=== PATIENT | female | born 1955 | race African-American/Black ===

== ENCOUNTER 2020-11-15 11:29 | Emergency (ER) | payer OTHER, SELFPAY ==
[2020-11-15] MEDS ORDERED: Ondansetron PF 4 MG/2 ML Vial ONE (12:23)
[2020-11-15] MEDS ORDERED: Pantoprazole 40 MG VIAL ONE (12:23)
[2020-11-15] MEDS ORDERED: Labetalol HCl 100 MG/20 ML VIAL ONE ×2 (12:23→12:25)
[2020-11-15] MEDS ORDERED: Metoprolol Tartrate 5 MG/5 ML VIAL ONE (12:26)
[2020-11-15 12:45] LABS: #Basophils 0.1 thou/uL (0.0-0.2); #Lymphocytes 1.7 thou/uL (1.20-3.40); #Monocytes 0.7 thou/uL (0.11-0.59); #Neutrophils 4.8 thou/uL (1.40-6.50); %Eosinophils 0.5 % (0.0-10.0); %Lymphocytes 22.7 % (21.0-51.0); %Monocytes 9.5 % (0.0-10.0); %Neutrophils 66.3 % (42.0-75.0); Hemoglobin 13.2 g/dL (12.0-16.0); Mean Corpuscular HGB CONC 32.7 g/dL (32.0-36.0); Mean Corpuscular Hemoglobin 29.8 pg (27.0-31.0); Mean Corpuscular Volume 91.3 fL (78.0-98.0); Mean Platelet Volume 7.2 fL (7.4-10.4); Platelet Count 340 thou/uL (130-400); RBC Distribution Width 11.3 % (11.5-14.5); Red Blood Cell (RBC) Count 4.43 mill/uL (4.20-5.40); White Blood Cell (WBC) Count 7.3 thou/uL (4.8-10.8)
[2020-11-15 13:07] LABS: ALT (SGPT) 17 U/L (8-55); AST (SGOT) 28 U/L (5-34); Albumin 3.7 g/dL (3.4-4.8); Alkaline Phosphatase 95 U/L (40-110); Anion Gap 13 mmol/L (10-20); BUN (Urea Nitrogen) 9 mg/dL (9.8-20.1); Bilirubin, Total 0.5 mg/dL (0.2-1.2); Calc. Creatinine Clearance 0 mL/min (70-130); Calcium 9.5 mg/dL (7.8-10.44); Carbon Dioxide 33 mmol/L (23-31); Chloride 99 mmol/L (98-107); Globulin 3.9 g/dL (2.4-3.5); Glucose 121 mg/dL (80-115); Lipase 221 U/L (8-78); Potassium 4.3 mmol/L (3.5-5.1); Protein, Total 7.6 g/dL (5.8-8.1); Sodium 141 mmol/L (136-145)
[2020-11-15 14:15] LABS: Bilirubin Negative (Negative); Blood, Urine Negative (Negative); Clarity Turbid (Clear); Glucose, Urine (Dipstick) Normal (Negative); Ketone, Urine Negative (Negative); Leukocyte 250 Leu/uL (Negative); Nitrite Negative (Negative); Protein, Urine (Dipstick) 20 mg/dL (Neg-Trace); RBC/HPF 0-3 HPF (0-3); Specific Gravity, Urine 1.015 (1.002-1.036); Urobilinogen Normal mg/dL (Less than 2); WBC/HPF 21-50 HPF (0-3)
[2020-11-15 14:17] LABS: Bacteria/HPF 1+ HPF (None Seen)
== END 2020-11-15 14:34 | disposition home or self-care (01) ==
LOC: ERS 11:29
DX: K85.90 Acute pancreatitis without necrosis or infection, unspecified (principal); R11.0 Nausea; I10 Essential (primary) hypertension; E78.00 Pure hypercholesterolemia, unspecified; Z79.899 Other long term (current) drug therapy
CPT/HCPCS: 80053; 81003; 81015; 83690; 84484; 85025; 93005; 96374; 96375; C9113; J2405

== ENCOUNTER 2020-11-17 06:16 | Emergency (ER) | payer SELFPAY ==
[2020-11-17] MEDS ORDERED: Pantoprazole 40 MG VIAL ONE (07:44)
[2020-11-17] MEDS ORDERED: Morphine 4 MG/ML VIAL ONE (07:44)
[2020-11-17] MEDS ORDERED: Ondansetron PF 4 MG/2 ML Vial ONE (07:44)
[2020-11-17 08:03] LABS: #Lymphocytes 1.7 thou/uL (1.20-3.40); #Monocytes 0.7 thou/uL (0.11-0.59); %Basophils 0.4 % (0.0-1.0); %Eosinophils 0.6 % (0.0-10.0); %Lymphocytes 26.6 % (21.0-51.0); %Monocytes 10.1 % (0.0-10.0); %Neutrophils 62.4 % (42.0-75.0); Hemoglobin 12.9 g/dL (12.0-16.0); Mean Corpuscular HGB CONC 33.4 g/dL (32.0-36.0); Mean Corpuscular Hemoglobin 30.8 pg (27.0-31.0); Mean Corpuscular Volume 92.2 fL (78.0-98.0); Mean Platelet Volume 7.2 fL (7.4-10.4); Platelet Count 331 thou/uL (130-400); RBC Distribution Width 11.3 % (11.5-14.5); Red Blood Cell (RBC) Count 4.17 mill/uL (4.20-5.40); White Blood Cell (WBC) Count 6.4 thou/uL (4.8-10.8)
[2020-11-17 08:29] LABS: ALT (SGPT) 19 U/L (8-55); AST (SGOT) 37 U/L (5-34); Albumin 3.7 g/dL (3.4-4.8); Alkaline Phosphatase 89 U/L (40-110); Anion Gap 13 mmol/L (10-20); BUN (Urea Nitrogen) 5 mg/dL (9.8-20.1); Bilirubin, Total 0.5 mg/dL (0.2-1.2); Calc. Creatinine Clearance 0 mL/min (70-130); Calcium 9.3 mg/dL (7.8-10.44); Carbon Dioxide 29 mmol/L (23-31); Chloride 101 mmol/L (98-107); Globulin 4.9 g/dL (2.4-3.5); Glucose 121 mg/dL (80-115); Lipase 148 U/L (8-78); Potassium 4.4 mmol/L (3.5-5.1); Protein, Total 8.6 g/dL (5.8-8.1); Sodium 139 mmol/L (136-145)
--- NOTE | 2020-11-17 08:33 | RAD ---
RADIOGRAPH CHEST 1 VIEW: DATE: 11/17/2020 TIME: 8:10 AM HISTORY: 65-year-old female with chest pain COMPARISON: 09/30/2012 FINDINGS: Again noted is the mildly elevated right hemidiaphragm. Again noted are scattered calcified granulomata in the bilateral mid and lower lung zones, especially on the right. Prominent interstitial markings at bilateral mid and lower lung zones appear slightly more prominent on the current study, especially on the right, compared to prior study. Cardiac size at upper limits of normal. No pneumothorax. No consolidation IMPRESSION: 1) nonspecific prominent interstitial markings, right greater than left. 2) chronically elevated right hemidiaphragm. 3) evidence for old, inactive pulmonary granulomatous disease. 4) no acute consolidation
[2020-11-17 09:28] LABS: Bacteria/HPF 3+ HPF (None Seen); Bilirubin Negative (Negative); Blood, Urine Negative (Negative); Clarity Turbid (Clear); Glucose, Urine (Dipstick) Normal (Negative); Ketone, Urine Negative (Negative); Leukocyte Negative Leu/uL (Negative); Nitrite 2+ (Negative); Protein, Urine (Dipstick) Negative (Neg-Trace); RBC/HPF None Seen HPF (0-3); Specific Gravity, Urine 1.006 (1.002-1.036); Urobilinogen Normal mg/dL (Less than 2); pH, Urine 7.5 (5.0-9.0)
[2020-11-17] MEDS ORDERED: Iopamidol-370 76% 500 ML 1 ML ONE (10:07)
--- NOTE | 2020-11-17 10:22 | CT ---
EXAM: Abdomen and pelvic CT scan with contrast: HISTORY: Abdominal pain and discomfort COMPARISON: None FINDINGS: Lungs:Moderate bilateral patchy interstitial and groundglass opacity changes in both visualized right and left lower lungs. This appearance could certainly be associated with Covid pneumonia. Correlate with laboratory findings. Old granulomatous disease. Liver: Unremarkable. Gallbladder:Unremarkable. Common bile duct:Normal Pancreas:Unremarkable Spleen:Unremarkable. Adrenal glands:Unremarkable. Kidneys:No renal calculus or acute obstruction. 6.6 cm diameter cyst anterior right mid kidney No evidence for bowel obstruction. Aorta:No evidence for aneurysm. Spine:Discogenic disease. No CT evidence for acute appendicitis. Borderline thick urinary bladder wall although it is not significantly distended. Reproductive system:Unremarkable as visualized. Hernias:Small hiatal hernia and small fat-containing umbilical hernia. Other findings as above. No abscess, adenopathy, or abnormal fluid collection within the abdomen or pelvis. IMPRESSION: Moderate bilateral patchy interstitial and groundglass opacity changes in both lower lungs, this appe arance could be consistent with Covid pneumonia. Correlate with laboratory findings. Borderline thick urinary bladder wall, nonspecific.
[2020-11-17] MEDS ORDERED: cefTRIAXone\\ROCEPHIN 1 GM VIAL ONE (10:42)
[2020-11-17] MEDS ORDERED: Labetalol HCl 100 MG/20 ML VIAL ONE (11:04)
== END 2020-11-17 13:47 | disposition home or self-care (01) ==
LOC: ERS 06:16
DX: N39.0 Urinary tract infection, site not specified (principal); I10 Essential (primary) hypertension; E78.00 Pure hypercholesterolemia, unspecified; Z79.899 Other long term (current) drug therapy
CPT/HCPCS: 71045; 74177; 80053; 81003; 81015; 83605; 83690; 85025; 93005; 96365; 96375; C9113; J0696; J2270; J2405; Q9967

== ENCOUNTER 2025-08-22 12:38 | Inpatient (IN) | payer MEDICARE ==
[2025-08-22 14:44] LABS: #Basophils 0.06 10x3/uL (0.0-0.2); #Eosinophils 0.11 10x3/uL (0.0-0.7); #Monocytes 0.88 10x3/uL (0.11-0.59); #Neutrophils 6.66 10x3/uL (1.40-6.50); %Basophils 0.6 % (0.0-1.0); %Eosinophils 1.1 % (0.0-10.0); %Lymphocytes 22.3 % (21.0-51.0); %Monocytes 8.8 % (0.0-10.0); %Neutrophils 66.8 % (42.0-75.0); Hematocrit 40.2 % (36.0-47.0); Hemoglobin 12.7 g/dL (12.0-16.0); Mean Corpuscular Hemoglobin 28.1 pg (27.0-31.0); Mean Corpuscular Volume 88.9 fL (78.0-98.0); Platelet Count 236 10x3/uL (130-400); Red Blood Cell (RBC) Count 4.52 mill/uL (4.20-5.40); White Blood Cell (WBC) Count 9.98 10x3/uL (4.8-10.8)
[2025-08-22 14:59] LABS: ALT (SGPT) 13 U/L (Less than 34); AST (SGOT) 31 U/L (11-34); Albumin 4.2 g/dL (3.1-4.5); Alkaline Phosphatase 160 U/L (40-110); Anion Gap 18 mmol/L (10-20); BUN (Urea Nitrogen) 20 mg/dL (9.8-20.1); Bilirubin, Total 0.3 mg/dL (0.3-1.2); Calc. Creatinine Clearance 0 mL/min (70-130); Calcium 10.5 mg/dL (7.8-10.44); Carbon Dioxide 27 mmol/L (23-31); Chloride 104 mmol/L (98-107); Globulin 4.5 g/dL (2.4-3.5); Glucose 106 mg/dL (80-115); Potassium 4.9 mmol/L (3.5-5.1); Sodium 144 mmol/L (136-145)
[2025-08-22] MEDS ORDERED: Nitroglycerin 2% Ointment 1 INCH/1 GM Packet ONE (15:41)
[2025-08-22] MEDS ORDERED: Aspirin Chewable 81 MG TAB ONE (15:42)
[2025-08-22] MEDS ORDERED: hydrALAZINE 20 MG/ML VIAL ONE (17:04)
[2025-08-22] MEDS ORDERED: Nitroglycerin 0.4 MG TAB (25 Tab Bottle) SL PRN (17:54)
[2025-08-22] MEDS ORDERED: Melatonin 3 MG TAB PO PRN (17:54)
[2025-08-22] MEDS ORDERED: Acetaminophen 325 MG TAB PO PRN (17:54)
[2025-08-22 19:56] VITALS: BMI 35.5
[2025-08-22] MEDS: Famotidine 20 MG TAB PO SCH (20:35)
[2025-08-22] MEDS: Ondansetron PF 4 MG/2 ML Vial IVP PRN (20:35)
[2025-08-22] MEDS: Phenytoin Extended Release 100 MG CAP PO SCH (20:35)
[2025-08-23 05:09] LABS: Anion Gap 15 mmol/L (10-20); BUN (Urea Nitrogen) 23 mg/dL (9.8-20.1); Calc. Creatinine Clearance 44 mL/min (70-130); Calcium 9.6 mg/dL (7.8-10.44); Carbon Dioxide 23 mmol/L (23-31); Cardiac Risk 2.9 (Less than 4.5); Chloride 106 mmol/L (98-107); Cholesterol 169 mg/dl (< 200 Desired); Glucose 102 mg/dL (80-115); HDL Cholesterol 59 mg/dL (>60 Neg Risk); LDL Cholesterol, Calculated 97 mg/dL; Potassium 3.9 mmol/L (3.5-5.1); Sodium 140 mmol/L (136-145); Triglycerides 63 mg/dL (Less than 150)
[2025-08-23] MEDS: Losartan 25 MG TAB PO SCH (08:27)
[2025-08-23] MEDS: Aspirin Chewable 81 MG TAB PO SCH (08:28)
[2025-08-23] MEDS: Enoxaparin 40 MG (0.4 mL) SYRINGE SC SCH (08:29)
[2025-08-23] MEDS: Carvedilol 25 MG TAB PO SCH (16:27)
[2025-08-24 04:59] LABS: Anion Gap 15 mmol/L (10-20); BUN (Urea Nitrogen) 28 mg/dL (9.8-20.1); Calc. Creatinine Clearance 45 mL/min (70-130); Calcium 9.2 mg/dL (7.8-10.44); Carbon Dioxide 23 mmol/L (23-31); Chloride 104 mmol/L (98-107); Glucose 98 mg/dL (80-115); Potassium 4.1 mmol/L (3.5-5.1); Sodium 138 mmol/L (136-145)
[2025-08-24] MEDS: Famotidine 20 MG TAB PO SCH (07:51)
[2025-08-25 05:03] LABS: Anion Gap 14 mmol/L (10-20); BUN (Urea Nitrogen) 21 mg/dL (9.8-20.1); Calc. Creatinine Clearance 59 mL/min (70-130); Calcium 9.6 mg/dL (7.8-10.44); Carbon Dioxide 26 mmol/L (23-31); Chloride 108 mmol/L (98-107); Glucose 104 mg/dL (80-115); Potassium 4.5 mmol/L (3.5-5.1); Sodium 143 mmol/L (136-145)
[2025-08-26 06:34] LABS: Anion Gap 12 mmol/L (10-20); BUN (Urea Nitrogen) 17 mg/dL (9.8-20.1); Calc. Creatinine Clearance 74 mL/min (70-130); Calcium 9.9 mg/dL (7.8-10.44); Carbon Dioxide 25 mmol/L (23-31); Chloride 106 mmol/L (98-107); Glucose 103 mg/dL (80-115); Potassium 3.8 mmol/L (3.5-5.1); Sodium 139 mmol/L (136-145)
[2025-08-26] MEDS: Losartan 25 MG TAB PO SCH (08:31)
[2025-08-27 08:52] VITALS: BP 125/60; TEMP 98.6
[2025-08-27] MEDS ORDERED: Losartan 25 MG TAB PO SCH (09:00)
== END 2025-08-27 14:02 | disposition home or self-care (01) | DRG 305 ==
LOC: ERS 12:38 → OBS 17:39 → OBSVTOIN 08-23 15:34
PROVIDERS: ADMIT Hospitalist; ATTEND Hospitalist
DX: I16.0 Hypertensive urgency (principal); N17.9 Acute kidney failure, unspecified; I10 Essential (primary) hypertension; E78.5 Hyperlipidemia, unspecified; G40.909 Epilepsy, unspecified, not intractable, without status epilepticus; C50.911 Malignant neoplasm of unspecified site of right female breast; Z79.899 Other long term (current) drug therapy
CPT/HCPCS: 36415; 71045; 78452; 80048; 80053; 80061; 83690; 83880; 84484; 85025; 93005; 93017; 94760; 96372; 96374; 96375; A9502; G0378; J0360; J1650; J2405; J2785; J7120